=== PATIENT | male | born 1945 | race Caucasian/White ===

== ENCOUNTER 2016-11-12 08:56 | Emergency (ER) | payer MEDICARE, OTHER ==
[~2016-11-12] VITALS: Ht 190.5 cm; Wt 91.0 kg
[~2016-11-12 08:56] MED LIST: ALEV220T14 PO; Baclofen ITR; CELE20TA PO; CORE25TA PO; FEXO60TA PO; FISH1000; LATA0.002 RIGHT EYE; PRIN20TA2 PO; SENN8.6T8; TRIA1CAP6 PO; ZOCO40TA PO
[2016-11-12 09:04] VITALS: BP 149/70; PULSE 66; RESP 23; TEMP 99.1; O2SAT 98
--- NOTE | 2016-11-12 09:15 | PD ---
HPI Chief Complaint: Fall Time Seen by Provider: 09:04 Travel History International Travel<30 days: No Contact w/Intl Traveler<30days: No Traveled to known affect area: No History of Present Illness HPI 70-year-old male complains of forehead pain. Patient states that he felt this morning. Patient denies loss of consciousness. Patient states that he has a lump on the left side of the forehead. Patient denies any visual change. Patient denies any neck pain. Patient denies any chest pain or shortness of breath. Patient denies abdominal pain. Patient denies any focal weakness or numbness of extremity. Patient taking Naprosyn daily or arthritis. 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; ) Psychiatric: Yes (OCCAS BOUTS OF DEPRESSION SINCE STROKE) Respiratory: Yes (HX SLEEP APNEA RESOLVED WITH WEIGHT LOSS ) Radiation Therapy: Yes Thyroid Disease: No Past Surgical History Abdominal Surgery: No AICD: No Body Medical Devices: BACLOFEN PUMP LL ABDOMEN Cardiac Surgery: No Ear Surgery: No Endocrine Surgery: No Eye Surgery: No Genitourinary Surgery: No Joint Replacement: No Oral Surgery: Yes (TONSILLECTOMY ) Pacemaker: No Thoracic Surgery: No Social History Alcohol Use: No Tobacco Use: No Substance Use: No Allergies-Medications (Allergen,Severity, Reaction): Coded Allergies: No Known Allergies (Unverified , 11/01/16) Reported Meds & Prescriptions Reported Meds & Active Scripts Active Reported Aleve Arthritis (Naproxen Sodium) 220 Mg Tab 220 Mg PO BID [Baclofen] 256.1 Mcg ITR CONTINUOUS Zocor (Simvastatin) 40 Mg Tab 0.5 Mg PO HS Prinivil (Lisinopril) 20 Mg Tab 40 Mg PO DAILY Latanoprost Opth Drops (Latanoprost) 0.005% Drops 1 Drop RIGHT EYE HS Refrigerate until opened. Fish Oil ([place]-3 Fatty Acids) 1,000 Mg Cap 1,000 HS Fexofenadine (Fexofenadine HCl) 60 Mg Tab Unknown Dose PO BID Dyrenium (Triamterene) 50 Mg Cap 25 Mg PO DAILY@0600 Coreg (Carvedilol) 25 Mg Tab 25 Mg PO BID Celexa (Citalopram Hydrobromide) 20 Mg Tab 10 Mg PO DAILY Senna S (Sennosides-Docusate Sodium) 8.6-50 Mg Tab 2 Tab DAILY Review of Systems General / Constitutional: No: Fever Eyes: No: Visual changes HENT: Positive: Headaches Cardiovascular: No: Chest Pain or Discomfort Respiratory: No: Shortness of Breath Gastrointestinal: No: Abdominal Pain Genitourinary: No: Dysuria Musculoskeletal: No: Pain Skin: No Rash Neurologic: No: Weakness Psychiatric: No: Depression Endocrine: No: Polydipsia Hematologic/Lymphatic: No: Easy Bruising Physical Exam Narrative GENERAL: Well-nourished, well-developed patient. SKIN: Focused skin assessment warm/dry. HEAD: Normocephalic. Patient has soft tissue swelling tenderness left forehead area. Patient has abrasion to the forehead. No active bleeding. EYES: No scleral icterus. No injection or drainage. Pupils 3 mm equal reactive. NECK: Supple, trachea midline. No JVD or lymphadenopathy. No neck tenderness. CARDIOVASCULAR: Regular rate and rhythm without murmurs, gallops, or rubs. RESPIRATORY: Breath sounds equal bilaterally. No accessory muscle use. GASTROINTESTINAL: Abdomen soft, non-tender, nondistended. MUSCULOSKELETAL: No cyanosis, or edema. BACK: Nontender without obvious deformity. No CVA tenderness. Neurologic exam: Patient's awake alert oriented 3. No obvious focal neurological deficit. Data Data Last Documented VS Vital Signs Date Time Temp Pulse Resp B/P (MAP) Pulse Ox O2 Delivery O2 Flow Rate FiO2 11/12/16 09:05 Room Air 11/12/16 09:04 99.1 66 23 149/70 (96) [address] Brain W/O Iv Contrast(Rout) (11/12/16 09:04) MDM Medical Decision Making Medical Screen Exam Complete: Yes Emergency Medical Condition: Yes Interpretation(s) Last Impressions Head CT 11/12/16 0904 Signed Impressions: Service Date/Time: Saturday, November 12, 2016 09:43 - CONCLUSION: No acute intracranial injury Rich Christianson MD Differential Diagnosis Differential diagnosis including closed head injury, skull fracture, intracranial hemorrhage. Narrative Course 70-year-old male with head injury. Status post fall. Diagnosis Primary Impression: Closed head injury Qualified Codes: S09.90XA - Unspecified injury of head, initial encounter Additional Impressions: Traumatic hematoma of forehead Qualified Codes: S00.83XA - Contusion of other part of head, initial encounter Forehead abrasion Qualified Codes: S00.81XA - Abrasion of other part of head, initial encounter Patient Instructions: General Instructions Additional Instructions: Polysporin ointment daily. Head trauma instructions. Follow-up as needed. Med/Other Pt SpecificInfo: No Change to Meds Disposition: 01 DISCHARGE HOME Condition: Stable Shan Ramos MD Nov 12, 2016 09:15
--- NOTE | 2016-11-12 10:24 | RADRPT ---
EXAM DATE/TIME: 11/12/2016 09:43 [facility] COMPARISON: CT BRAIN W/O CONTRAST, February 09, 2016, 11:33. INDICATIONS : Trauma, fall. Left eye swelling. RADIATION DOSE: 39.77 CTDIvol (mGy) MEDICAL HISTORY : None SURGICAL HISTORY : None. ENCOUNTER: Initial ACUITY: 1 day PAIN SCALE: 4/10 LOCATION: Left cranial TECHNIQUE: Multiple contiguous axial images were obtained of the head. Using automated exposure control and adj ustment of the mA and/or kV according to patient size, radiation dose was kept as low as reasonably a chievable to obtain optimal diagnostic quality images. DICOM format image data is available electro nically for review and comparison. FINDINGS: The brain appearance is stable with mild ex thank you expansion of the left lateral ventricle followi ng old basal ganglia lacunar infarct. Minimal spontaneous density in the left external capsule region is unchanged. There is no evidence of intracranial mass or hemorrhage. There is nothing to suggest a cute infarction. There is prominent left frontal cephalohematoma without evidence of underlying skull fracture. CONCLUSION: No acute intracranial injury Rich Christianson MD on November 12, 2016 at 10:20 Board Certified Radiologist. This report was verified electronically.
[2016-11-12 13:06] VITALS: BP 130/70
== END 2016-11-12 13:11 | disposition home or self-care (01) ==
LOC: NEPE 08:56
DX: S09.90XA Unspecified injury of head, initial encounter (principal); S00.83XA Contusion of other part of head, initial encounter; S00.81XA Abrasion of other part of head, initial encounter; W01.0XXA Fall on same level from slipping, tripping and stumbling without subsequent striking against object, initial encounter; Y93.01 Activity, walking, marching and hiking
CPT/HCPCS: 70450; 99284

== ENCOUNTER 2017-06-07 12:20 | Emergency (ER) | payer MEDICARE, OTHER ==
[~2017-06-07] VITALS: Ht 190.5 cm; Wt 100.0 kg
[~2017-06-07 12:20] MED LIST changes: -ALEV220T14 PO; -LATA0.002 RIGHT EYE; +MULT-65 PO; -TRIA1CAP6 PO; +TRIA37.53 PO
[2017-06-07 12:28] VITALS: BP 116/59; PULSE 61; RESP 18; TEMP 97.5; O2SAT 97
--- NOTE | 2017-06-07 13:25 | PD ---
HPI Chief Complaint: Injury Time Seen by Provider: 12:49 Travel History International Travel<30 days: No Contact w/Intl Traveler<30days: No Traveled to known affect area: No History of Present Illness HPI 71-year-old man, history of stroke with resultant right-sided paresis, presents to the ED evaluation for fall. He reports that he had 2 falls today. He normally is pretty unsteady and weak in the right side. He normally uses a cane to get around in a wheelchair/scooter at his nursing facility. Complains of inability to fully extend the knee since the fall. Some pain there. Denies hitting his head. No other complaints. History Past Medical History Narrative Medical Right-sided paresis status post stroke known history of prostate cancer Occasional depression History of sleep apnea Baclofen pump Social History Alcohol Use: No Tobacco Use: No (QUIT ) Allergies-Medications (Allergen,Severity, Reaction): Coded Allergies: No Known Allergies (Unverified , 11/01/16) Reported Meds & Prescriptions Reported Meds & Active Scripts Active Reported Multi-Vitamin Daily (Multiple Vitamin) 1 Tab Tab 1 Tab PO DAILY Triamterene-Hydrochlorothiazide 37.5-25 Mg Cap 1 Cap PO DAILY [Baclofen] 256.1 Mcg ITR CONTINUOUS Zocor (Simvastatin) 40 Mg Tab 0.5 Mg PO HS Prinivil (Lisinopril) 20 Mg Tab 40 Mg PO DAILY Fish Oil ([place]-3 Fatty Acids) 1,000 Mg Cap 1,000 HS Fexofenadine (Fexofenadine HCl) 60 Mg Tab 180 PO DAILY Coreg (Carvedilol) 25 Mg Tab 25 Mg PO BID Celexa (Citalopram Hydrobromide) 20 Mg Tab 10 Mg PO DAILY Senna S (Sennosides-Docusate Sodium) 8.6-50 Mg Tab 1 Tab BID Review of Systems Except as stated in HPI: all other systems reviewed are Neg Physical Exam Narrative GENERAL: 71-year-old man, contracted in the right extremities, nontoxic. SKIN: Focused skin assessment warm/dry. HEAD: Atraumatic. Normocephalic. EYES: Pupils equal and round. No scleral icterus. No injection or drainage. CARDIOVASCULAR: Regular rate and rhythm. No murmur appreciated. RESPIRATORY: No accessory muscle use. Clear to auscultation. Breath sounds equal bilaterally. GASTROINTESTINAL: Abdomen soft, non-tender, nondistended. Musculoskeletal: Flexion contractures in the right upper extremity. Right lower extremity shows the right knee slightly flexed. He can flex it further without much resistance however extending it fully is difficult. No significant pain. There is no palpable tenderness. No erythema warmth. No obvious joint effusion. NEUROLOGICAL: Awake and alert. No obvious cranial nerve deficits. Motor grossly within normal limits. Normal speech. PSYCHIATRIC: Appropriate mood and affect; insight and judgment normal. Data Data Last Documented VS Vital Signs Date Time Temp Pulse Resp B/P (MAP) Pulse Ox O2 Delivery O2 Flow Rate FiO2 06/07/17 12:28 97.5 61 18 116/59 (78) 97 Orders Orders Knee, Ltd (1 Or 2vws) (06/07/17 ) Splint Or Brace Apply/Monitor (06/07/17 13:20) Acetaminophen (Tylenol) (06/07/17 13:30) Ed Discharge Order (06/07/17 13:20) [facility] Medical Decision Making Medical Screen Exam Complete: Yes Emergency Medical Condition: Yes Interpretation(s) My review of right knee x-ray: No acute fracture. Differential Diagnosis Fracture, effusion, joint instability, other Narrative Course Medical decision making 71-year-old man presents to the emergency department complaining of right knee stiffness. History of hemorrhagic CVA with resultant right-sided stiffness and paresis. Is a baclofen pump. I do not see any fracture on the x-ray. Will wrap it for support. Follow-up if symptoms persist. Diagnosis Primary Impression: Fall Additional Impression: Knee stiffness Additional Instructions: Use Omi wrap as needed for knee support. Weight-bear as tolerated. Follow-up with your primary doctor in 1 week if symptoms persist. Med/Other Pt SpecificInfo: No Change to Meds Disposition: 01 DISCHARGE HOME Condition: Stable Jewel Ludwig MD Jun 07, 2017 13:25
[2017-06-07] MEDS ORDERED: ACETAMINOPHEN 500 MG CPLT PO ONE (13:30)
--- NOTE | 2017-06-07 13:43 | RADRPT ---
EXAM DATE/TIME: 06/07/2017 13:04 [facility] COMPARISON: No previous studies available for comparison. INDICATIONS : Right knee pain, fall. MEDICAL HISTORY : Stroke. SURGICAL HISTORY : None. ENCOUNTER: Initial ACUITY: 1 day PAIN SCORE: 10/10 LOCATION: Right knee FINDINGS: 2 view examination of the knee demonstrates prominent osteophytes about the patella in a low-lying po sition to the patella. The suprapatellar soft tissues are normal in thickness. Possible narrowing o f the lateral compartment of the knee. The tibial plateaus are not well seen on these 2 views. Vasc ular calcification in the distal thigh and popliteal region. CONCLUSION: 1. Prominent patellar osteophytes. 2. No gross abnormality seen. However, there is incomplete evaluation of the tibial plateaus. Soheila hadley onsider performing oblique views for complete evaluation. Nick Haas MD on June 07, 2017 at 13:40 Board Certified Radiologist. This report was verified electronically.
[2017-06-07] MEDS ORDERED: TRAM50TA PO (13:46)
[2017-06-07] MEDS ORDERED: CELE20TA PO (13:46)
[2017-06-07] MEDS ORDERED: SIMV20TA PO (13:46)
== END 2017-06-07 14:35 | disposition home or self-care (01) ==
LOC: NEPD 12:20
DX: M25.669 Stiffness of unspecified knee, not elsewhere classified (principal); M25.561 Pain in right knee; W19.XXXA Unspecified fall, initial encounter; I69.351 Hemiplegia and hemiparesis following cerebral infarction affecting right dominant side; F32.9 Major depressive disorder, single episode, unspecified; G47.30 Sleep apnea, unspecified; Z87.891 Personal history of nicotine dependence; Z85.46 Personal history of malignant neoplasm of prostate
CPT/HCPCS: 73560; 99283

== ENCOUNTER 2017-06-10 18:46 | Observation (INO) | payer MEDICARE, OTHER ==
[~2017-06-10] VITALS: Ht 190.5 cm; Wt 95.0 kg
[~2017-06-10 18:46] MED LIST changes: +SIMV20TA PO; +TRAM50TA PO; -ZOCO40TA PO
[2017-06-10 19:05] VITALS: BP 147/67; PULSE 66; RESP 17; TEMP 98; O2SAT 98
--- NOTE | 2017-06-10 19:34 | PD ---
HPI Chief Complaint: General Weakness Time Seen by Provider: 19:21 Travel History International Travel<30 days: No Contact w/Intl Traveler<30days: No Traveled to known affect area: No History of Present Illness HPI Patient is a 71 year old male sent in from his [facility] due to concerns for his ability to care for himself. Per EMS, he has had a decline in his ability to carry out his ADLs. He has history of stroke in the past with residual right sided weakness. His only complaint is right arm pain, which he says has been present since the stroke. He was here for a fall on June 07, but says he has not fallen since then. Staff at the [facility] was concerned for possible increased swelling of his right arm. He denies chest pain, SOB, headache, nausea or vomiting. Severity is mild. 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; ) Psychiatric: Yes (OCCAS BOUTS OF DEPRESSION SINCE STROKE) Respiratory: Yes (HX SLEEP APNEA RESOLVED WITH WEIGHT LOSS ) Radiation Therapy: Yes Sleep Apnea: Yes Thyroid Disease: No Tetanus Vaccination: < 5 Years Influenza Vaccination: Yes Past Surgical History Abdominal Surgery: No AICD: No Body Medical Devices: BACLOFEN PUMP LL ABDOMEN Cardiac Surgery: No Ear Surgery: No Endocrine Surgery: No Eye Surgery: No Genitourinary Surgery: No Joint Replacement: No Oral Surgery: Yes Pacemaker: No Thoracic Surgery: No Tonsillectomy: Yes Other Surgery: Yes Social History Alcohol Use: No Tobacco Use: No (QUIT ) Substance Use: No Allergies-Medications (Allergen,Severity, Reaction): Coded Allergies: No Known Allergies (Unverified Adverse Reaction, Unknown, 06/10/17) Reported Meds & Prescriptions Reported Meds & Active Scripts Active Reported Tramadol (Tramadol HCl) 50 Mg Tab 50 Mg PO Q6H PRN Simvastatin 20 Mg Tab 20 Mg PO HS Celexa (Citalopram Hydrobromide) 20 Mg Tab 20 Mg PO BID Multi-Vitamin Daily (Multiple Vitamin) 1 Tab Tab 1 Tab PO DAILY Triamterene-Hydrochlorothiazide 37.5-25 Mg Cap 1 Cap PO DAILY [Baclofen] 256.1 Mcg ITR CONTINUOUS Prinivil (Lisinopril) 20 Mg Tab 40 Mg PO DAILY Fish Oil ([place]-3 Fatty Acids) 1,000 Mg Cap 1,000 HS Fexofenadine (Fexofenadine HCl) 60 Mg Tab 180 PO DAILY Coreg (Carvedilol) 25 Mg Tab 25 Mg PO BID Senna S (Sennosides-Docusate Sodium) 8.6-50 Mg Tab 1 Tab BID Review of Systems Except as stated in HPI: all other systems reviewed are Neg General / Constitutional: No: Fever, Chills Eyes: No: Blurred Vision HENT: No: Headaches, Lightheadedness Cardiovascular: No: Chest Pain or Discomfort Respiratory: No: Shortness of Breath Gastrointestinal: No: Nausea, Vomiting Musculoskeletal: Positive: Edema, Pain Skin: No Rash, No Change in Pigmentation Neurologic: No: Weakness, Dizziness Physical Exam Narrative GENERAL: Awake and alert, in no acute distress. SKIN: Focused skin assessment warm/dry. Ecchymosis to the right upper extremity. No wounds or signs of infection. HEAD: Atraumatic. Normocephalic. EYES: Pupils equal and round. No scleral icterus. EOMI. ENT: Mucous membranes pink and moist. NECK: Trachea midline. No JVD. CARDIOVASCULAR: Regular rate and rhythm. No murmur appreciated. RESPIRATORY: No accessory muscle use. Clear to auscultation. Breath sounds equal bilaterally. GASTROINTESTINAL: Abdomen soft, non-tender, nondistended. MUSCULOSKELETAL: No obvious deformities. No clubbing. No cyanosis. NEUROLOGICAL: Awake and alert. No obvious cranial nerve deficits. Decreased movement/strength in the right extremities (chronic). Normal speech. PSYCHIATRIC: Appropriate mood and affect; insight and judgment normal. Data Data Last Documented VS Vital Signs Date Time Temp Pulse Resp B/P (MAP) Pulse Ox O2 Delivery O2 Flow Rate FiO2 06/10/17 19:05 98.0 66 17 147/67 (93) 98 Orders Orders Iv Access Insert/Monitor (06/10/17 19:22) Complete Blood Count With Diff (06/10/17 19:22) Comprehensive Metabolic Panel (06/10/17 19:22) Troponin I (06/10/17 19:22) Creatine Kinase (Cpk) (06/10/17 19:22) Us Arm Venous Doppler (06/10/17 ) Ct Brain W/O Iv Contrast(Rout) (06/10/17 ) Urinalysis - C+S If Indicated (06/10/17 19:22) CKMB (06/10/17 19:34) CKMB% (06/10/17 19:34) Electrocardiogram (06/10/17 19:15) Labs Laboratory Tests Test 06/10/17 19:34 06/10/17 20:44 White Blood Count 5.0 TH/MM3 Red Blood Count 3.33 MIL/MM3 Hemoglobin 10.4 GM/DL Hematocrit 30.2 % Mean Corpuscular Volume 90.7 FL Mean Corpuscular Hemoglobin 31.2 PG Mean Corpuscular Hemoglobin Concent 34.4 % Red Cell Distribution Width 13.2 % Platelet Count 187 TH/MM3 Mean Platelet Volume 8.4 FL Neutrophils (%) (Auto) 65.1 % Lymphocytes (%) (Auto) 18.0 % Monocytes (%) (Auto) 14.0 % Eosinophils (%) (Auto) 2.6 % Basophils (%) (Auto) 0.3 % Neutrophils # (Auto) 3.3 TH/MM3 Lymphocytes # (Auto) 0.9 TH/MM3 Monocytes # (Auto) 0.7 TH/MM3 Eosinophils # (Auto) 0.1 TH/MM3 Basophils # (Auto) 0.0 TH/MM3 CBC Comment DIFF FINAL Differential Comment Blood Urea Nitrogen 27 MG/DL Creatinine 1.05 MG/DL Random Glucose 241 MG/DL Total Protein 6.5 GM/DL Albumin 3.3 GM/DL Calcium Level 8.0 MG/DL Alkaline Phosphatase 71 U/L Aspartate Amino Transf (AST/SGOT) 18 U/L Alanine Aminotransferase (ALT/SGPT) 19 U/L Total Bilirubin 0.5 MG/DL Sodium Level 134 MEQ/L Potassium Level 4.3 MEQ/L Chloride Level 101 MEQ/L Carbon Dioxide Level 27.5 MEQ/L Anion Gap 6 MEQ/L Estimat Glomerular Filtration Rate 70 ML/MIN Total Creatine Kinase 363 U/L Creatine Kinase MB 2.7 NG/ML Creatine Kinase MB % 0.7 % Troponin I LESS THAN 0.02 NG/ML Urine Color YELLOW Urine Turbidity CLEAR Urine pH 6.0 Urine Specific [place] 1.022 Urine Protein TRACE mg/dL Urine Glucose (UA) NEG mg/dL Urine Ketones NEG mg/dL Urine Occult Blood NEG Urine Nitrite NEG Urine Bilirubin NEG Urine Urobilinogen LESS THAN 2.0 MG/DL Urine Leukocyte Esterase NEG Urine RBC 1 /hpf Urine WBC 1 /hpf Urine Squamous Epithelial Cells <1 /hpf Microscopic Urinalysis Comment CULT NOT INDICATED MDM Medical Decision Making Medical Screen Exam Complete: Yes Emergency Medical Condition: Yes Medical Record Reviewed: Yes Interpretation(s) ECG shows NSR, RBBB Differential Diagnosis dehydration vs electrolyte abnormalities vs DVT vs infection Narrative Course Patient is a 71 year old male who comes in due to concerns he is unable to care for himself at the [facility] and needs higher level of care. Patient complains of chronic pain to his right arm. He is unable to walk or hold himself up currently. IV established, labs sent. Labs show mild dehydration with a BUN of 27 and a Cr 1.05. CT head shows no acute abnormalities. Last 24 hours Impressions Upper Extremity Ultrasound 06/10/17 0000 Signed Impressions: Service Date/Time: Saturday, June 10, 2017 20:03 - CONCLUSION: Normal examination. Zhang Cueva MD Head CT 06/10/17 0000 Signed Impressions: Service Date/Time: Saturday, June 10, 2017 19:49 - CONCLUSION: 1. No acute findings. Remote infarct left external capsule with encephalomalacia. Zhang Cueva MD Patient is unable to walk, so he will be admitted for further management. Diagnosis Primary Impression: Dehydration Additional Impression: Unable to walk Regi Manuel MD Jun 10, 2017 19:34
[2017-06-10 19:42] LABS: AUTOMATED NEUTROPHIL # 3.3 TH/MM3 (1.8-7.7); BASOPHIL % 0.3 % (0.0-2.0); EOSINOPHIL # 0.1 TH/MM3 (0-0.4); EOSINOPHIL % 2.6 % (0.0-4.0); HEMATOCRIT 30.2 % (39.0-51.0); HEMOGLOBIN 10.4 GM/DL (13.0-17.0); LYMPHOCYTE # 0.9 TH/MM3 (1.0-4.8); MEAN CELL VOLUME 90.7 FL (80.0-100.0); MEAN CORPUSCULAR HEMOGLOBIN 31.2 PG (27.0-34.0); MEAN CORPUSCULAR HGB CONC 34.4 % (32.0-36.0); MEAN PLATELET VOLUME 8.4 FL (7.0-11.0); MONOCYTE # 0.7 TH/MM3 (0-0.9); NEUT % 65.1 % (16.0-70.0); PLATELET COUNT 187 TH/MM3 (150-450); RED BLOOD COUNT 3.33 MIL/MM3 (4.50-5.90); RED CELL DISTRIBUTION WIDTH 13.2 % (11.6-17.2)
[2017-06-10 20:07] LABS: ALBUMIN 3.3 GM/DL (3.4-5.0); AST (GOT) 18 U/L (15-37); BICARBONATE 27.5 MEQ/L (21.0-32.0); BLOOD UREA NITROGEN 27 MG/DL (7-18); CHLORIDE 101 MEQ/L (98-107); CREATININE 1.05 MG/DL (0.60-1.30); GLOMERULAR FILTRATION RATE 70 ML/MIN (>89); GLUCOSE,RANDOM 241 MG/DL (74-106); SODIUM (NA) 134 MEQ/L (136-145)
[2017-06-10 20:08] LABS: ALT (GPT) 19 U/L (12-78)
[2017-06-10 20:11] LABS: ALKALINE PHOSPHATASE 71 U/L (45-117); TOTAL BILIRUBIN ADULT 0.5 MG/DL (0.2-1.0); TOTAL PROTEIN 6.5 GM/DL (6.4-8.2); TROPONIN I LESS THAN 0.02 NG/ML (0.02-0.05)
--- NOTE | 2017-06-10 20:17 | RADRPT ---
EXAM DATE/TIME: 06/10/2017 19:49 [facility] COMPARISON: MRI BRAIN W/O CONTRAST, February 09, 2016, 13:50. INDICATIONS : Altered mental status. RADIATION DOSE: 56.35 CTDIvol (mGy) MEDICAL HISTORY : Cerebrovascular disease. Hypertension. Carcinoma, prostate. SURGICAL HISTORY : None. ENCOUNTER: Initial ACUITY: 1 day PAIN SCALE: 0/10 LOCATION: cranial TECHNIQUE: Multiple contiguous axial images were obtained of the head. Using automated exposure control and adj ustment of the mA and/or kV according to patient size, radiation dose was kept as low as reasonably a chievable to obtain optimal diagnostic quality images. DICOM format image data is available electro nically for review and comparison. FINDINGS: There is an old infarct of the left external capsule region with some encephalomalacia and dilatation of the left lateral ventricle. Chronic white matter ischemic changes also are present. No acute intr acranial hemorrhage, mass effect or shift. No hydrocephalus. No acute bony abnormality. CONCLUSION: 1. No acute findings. Remote infarct left external capsule with encephalomalacia. Zhang Cueva MD on June 10, 2017 at 20:13 Board Certified Radiologist. This report was verified electronically.
--- NOTE | 2017-06-10 20:43 | RADRPT ---
EXAM DATE/TIME: 06/10/2017 20:03 [facility] COMPARISON: No previous studies available for comparison. INDICATIONS : RUE swelling. MEDICAL HISTORY : Carcinoma, prostate. Stroke. Hypertension. High cholesterol. SURGICAL HISTORY : Baclofen pump - left lower abdomen. ENCOUNTER: Initial ACUITY: >1 year PAIN SCORE: 0/10 LOCATION: Right arm. FINDINGS: There is spontaneous flow documented in the brachial, basilic, cephalic, axillary, and subclavian vei ns. The vessels are compressible and augmentation response is documented. No filling defects are se en. The flow is phasic with respiration. Direction of flow in the jugular vein is caudal. CONCLUSION: Normal examination. Zhang Cueva MD on June 10, 2017 at 20:40 Board Certified Radiologist. This report was verified electronically.
[2017-06-10 21:44] LABS: BILIRUBIN, URINE NEG (NEG); BLOOD, URINE NEG (NEG); GLUCOSE,URINE NEG (NEG); KETONE, URINE NEG (NEG); NITRITE,URINE NEG (NEG); SQUAMOUS EPITHELIAL CELL URINE <1 /hpf (0-5); URINE COLOR YELLOW (YELLW/STRAW); URINE LEUKOCYTE ESTERASE NEG (NEG)
[2017-06-10 22:00] VITALS: BP 123/60; PULSE 58; RESP 14; O2SAT 98
[2017-06-10 23:00] VITALS: BP 139/72; PULSE 58; RESP 13; O2SAT 97
--- NOTE | 2017-06-10 23:52 | HHI.HP ---
HPI Service [facility] Primary Care Physician Velasquez Yin MD Admission Diagnosis dehydration, inability to walk Diagnoses: Chief Complaint: Inability to walk, weakness Travel History International Travel<30 Days: No Contact w/Intl Traveler <30 Da: No Traveled to Known Affected Are: No History of Present Illness 71-year-old male with history of hypertension, CVA, prostate cancer presented to the ED with concerns of not being able to care for himself and his current [facility]. Patient states over the last few weeks he has been falling more often and has been feeling very weak which causes him to have inability to walk with his cane. He does have a history of a stroke in the past with residual right-sided weakness but he states this is unchanged. Per the ER report staff at the [facility] has been concerned for the patient because he is unable to care for himself in the current setting with everyday ADLs. He denies any current chest pain, shortness of breath, fever or chills. Review of Systems Except as stated in HPI: all other systems reviewed are Neg Past Family Social History Past Medical History Prostate cancer status post radiation Hypertension Hyperlipidemia CVA with right upper arm residuals Hard of hearing Diabetes Past Surgical History Tonsillectomy Reported Medications Reported Meds & Active Scripts Active Reported Tramadol (Tramadol HCl) 50 Mg Tab 50 Mg PO Q6H PRN Simvastatin 20 Mg Tab 20 Mg PO HS Celexa (Citalopram Hydrobromide) 20 Mg Tab 20 Mg PO BID Multi-Vitamin Daily (Multiple Vitamin) 1 Tab Tab 1 Tab PO DAILY Triamterene-Hydrochlorothiazide 37.5-25 Mg Cap 1 Cap PO DAILY [Baclofen] 256.1 Mcg ITR CONTINUOUS Prinivil (Lisinopril) 20 Mg Tab 40 Mg PO DAILY Fish Oil ([place]-3 Fatty Acids) 1,000 Mg Cap 1,000 HS Fexofenadine (Fexofenadine HCl) 60 Mg Tab 180 PO DAILY Coreg (Carvedilol) 25 Mg Tab 25 Mg PO BID Senna S (Sennosides-Docusate Sodium) 8.6-50 Mg Tab 1 Tab BID Allergies: Coded Allergies: No Known Allergies (Unverified Adverse Reaction, Unknown, 06/10/17) Active Ordered Medications Current Medications Medications (Trade) Dose Ordered Sig/Luz Route Start Time Stop Time Status Last Admin Sodium Chloride 1,000 ml @ 100 mls/hr Q10H IV 06/10/17 23:52 06/11/17 00:48 (NS Flush) 2 ml UNSCH PRN IV FLUSH 06/11/17 00:00 (NS Flush) 2 ml BID IV FLUSH 06/11/17 09:00 (Tylenol) 650 mg Q4H PRN PO 06/11/17 00:00 (Zofran Inj) 4 mg Q6H PRN IVP 06/11/17 00:00 (Narcan Inj) 0.4 mg UNSCH PRN IV PUSH 06/11/17 00:00 (Jhoana-Colace) 1 tab BID PO 06/11/17 09:00 (Milk Of Magnesia Liq) 30 ml Q12H PRN PO 06/11/17 00:00 (Senokot) 17.2 mg Q12H PRN PO 06/11/17 00:00 (Dulcolax Supp) 10 mg DAILY PRN RECTAL 06/11/17 00:00 (Lactulose Liq) 30 ml DAILY PRN PO 06/11/17 00:00 Family History Patient denies any family history no heart disease or cancer Social History Patient denies any tobacco, alcohol or illicit drug use. Physical Exam Vital Signs Vital Signs Date Time Temp Pulse Resp B/P (MAP) Pulse Ox O2 Delivery O2 Flow Rate FiO2 06/10/17 22:00 58 14 123/60 (81) 98 Room Air 06/10/17 19:17 Room Air 06/10/17 19:05 98.0 66 17 147/67 (93) 98 Physical Exam GENERAL: This is a well-nourished, well-developed patient, in no apparent distress. SKIN: multiple ecchymosis bilateral arms HEAD: Atraumatic. Normocephalic. EYES: Pupils equal round and reactive. ENT: Nose without bleeding, purulent drainage or septal hematoma. Airway patent. NECK: Trachea midline. No JVD or lymphadenopathy CARDIOVASCULAR: Regular rate and rhythm without murmurs, gallops, or rubs. RESPIRATORY: Clear to auscultation. Breath sounds equal bilaterally. No wheezes , rales, or rhonchi. GASTROINTESTINAL: Abdomen soft, non-tender, nondistended. No guarding. MUSCULOSKELETAL: Extremities without clubbing, cyanosis, or edema. No joint tenderness, effusion, or edema noted. No calf tenderness. NEUROLOGICAL: Awake and alert. Right upper extremity with minimal movement due to CVA. Bilateral lower extremities weak right greater than left .Normal speech. Laboratory Laboratory Tests Test 06/10/17 19:34 06/10/17 20:44 White Blood Count 5.0 Red Blood Count 3.33 Hemoglobin 10.4 Hematocrit 30.2 Mean Corpuscular Volume 90.7 Mean Corpuscular Hemoglobin 31.2 Mean Corpuscular Hemoglobin Concent 34.4 Red Cell Distribution Width 13.2 Platelet Count 187 Mean Platelet Volume 8.4 Neutrophils (%) (Auto) 65.1 Lymphocytes (%) (Auto) 18.0 Monocytes (%) (Auto) 14.0 Eosinophils (%) (Auto) 2.6 Basophils (%) (Auto) 0.3 Neutrophils # (Auto) 3.3 Lymphocytes # (Auto) 0.9 Monocytes # (Auto) 0.7 Eosinophils # (Auto) 0.1 Basophils # (Auto) 0.0 CBC Comment DIFF FINAL Differential Comment Blood Urea Nitrogen 27 Creatinine 1.05 Random Glucose 241 Total Protein 6.5 Albumin 3.3 Calcium Level 8.0 Alkaline Phosphatase 71 Aspartate Amino Transf (AST/SGOT) 18 Alanine Aminotransferase (ALT/SGPT) 19 Total Bilirubin 0.5 Sodium Level 134 Potassium Level 4.3 Chloride Level 101 Carbon Dioxide Level 27.5 Anion Gap 6 Estimat Glomerular Filtration Rate 70 Total Creatine Kinase 363 Creatine Kinase MB 2.7 Creatine Kinase MB % 0.7 Troponin I LESS THAN 0.02 Urine Color YELLOW Urine Turbidity CLEAR Urine pH 6.0 Urine Specific [place] 1.022 Urine Protein TRACE Urine Glucose (UA) NEG Urine Ketones NEG Urine Occult Blood NEG Urine Nitrite NEG Urine Bilirubin NEG Urine Urobilinogen LESS THAN 2.0 Urine Leukocyte Esterase NEG Urine RBC 1 Urine WBC 1 Urine Squamous Epithelial Cells <1 Microscopic Urinalysis Comment CULT NOT INDICATED Result Diagram: 06/10/17193306/10/17 193 Imaging Last Impressions Upper Extremity Ultrasound 06/10/17 0000 Signed Impressions: Service Date/Time: Saturday, June 10, 2017 20:03 - CONCLUSION: Normal examination. Zhang Cueva MD Head CT 06/10/17 0000 Signed Impressions: Service Date/Time: Saturday, June 10, 2017 19:49 - CONCLUSION: 1. No acute findings. Remote infarct left external capsule with encephalomalacia. MD uQynh Suarez VTE Risk Assessment Quynh VTE Risk Assessment: Mod/High Risk (score >= 2) Caprini Risk Assessment Model Point Value = 1 Point Value = 2 Point Value = 3 Point Value = 5 Age 41-60 Minor surgery BMI > 25 kg/m2 Swollen legs Varicose veins or History of unexplained or recurrent spontaneous Oral contraceptives or hormone replacement Sepsis (< 1 month) Serious lung disease, including pneumonia (< 1 month) Abnormal pulmonary function Acute myocardial infarction Congestive heart failure (< 1 month) History of inflammatory bowel disease Medical patient at bed rest Age 61-74 Arthroscopic surgery Major open surgery (> 45 min) Laparoscopic surgery (> 45 min) Malignancy Confined to bed (> 72 hours) Immobilizing plaster cast Central venous access Age >= 75 History of VTE Family history of VTE Factor V Leiden Prothrombin [id number] Lupus anticoagulant Anticardiolipin antibodies Elevated serum homocysteine Heparin-induced thrombocytopenia Other congenital or acquired thrombophilia Stroke (< 1 month) Elective arthroplasty Hip, pelvis, or leg fracture Acute spinal cord injury (< 1 month) Prophylaxis Regimen Total Risk Factor Score Risk Level Prophylaxis Regimen 0-1 Low Early ambulation 2 Moderate Order ONE of the following: *Sequential Compression Device (SCD) *Heparin 5000 units SQ BID 3-4 Higher Order ONE of the following medications: *Heparin 5000 units SQ TID *Enoxaparin/Lovenox 40 mg SQ daily (WT < 150 kg, CrCl > 30 mL/min) *Enoxaparin/Lovenox 30 mg SQ daily (WT < 150 kg, CrCl > 10-29 mL/min) *Enoxaparin/Lovenox 30 mg SQ BID (WT < 150 kg, CrCl > 30 mL/min) AND/OR *Sequential Compression Device (SCD) 5 or more Highest Order ONE of the following medications: *Heparin 5000 units SQ TID (Preferred with Epidurals) *Enoxaparin/Lovenox 40 mg SQ daily (WT < 150 kg, CrCl > 30 mL/min) *Enoxaparin/Lovenox 30 mg SQ daily (WT < 150 kg, CrCl > 10-29 mL/min) *Enoxaparin/Lovenox 30 mg SQ BID (WT < 150 kg, CrCl > 30 mL/min) AND *Sequential Compression Device (SCD) Assessment and Plan Problem List: (1) Hypertension ICD Code: I10 - Hypertension Status: Acute (2) Dehydration ICD Code: E86.0 - Dehydration Status: Acute (3) Impaired gait ICD Code: R26.9 - Impaired gait Status: Acute Assessment and Plan 71-year-old male with history of hypertension, CVA, prostate cancer presented to the ED with concerns of not being able to care for himself and his current [facility]. Physical deconditioning status post falls -PT eval and treat -Case management consult for SNF placement Mild rhabdomyolysis CPK 363 -IVF -CPK in AM Hyperglycemia, patient denies any history, glucose 241 -Accu-Cheks with sliding scale -A1C ordered Hypertension, chronic -Resume home medications, lisinopril, and monitor vitals Hyperlipidemia, chronic -Resume home medications simvastatin DVT prophylaxis: SCDs, heparin Discussed Condition With Patient and ED physician Isabel Razo Jun 10, 2017 23:52
[2017-06-11] VITALS (7 sets, daily range): BP systolic 152–194; BP diastolic 62–81; PULSE 60–72; RESP 14–20; TEMP 96.2–98.5; O2SAT 95–98
[2017-06-11] MEDS ORDERED: MAGNESIUM HYDROXIDE SUSP 30 ML CUP PO PRN
[2017-06-11] MEDS ORDERED: BISACODYL 10 MG SUPP RECTAL PRN
[2017-06-11] MEDS ORDERED: ONDANSETRON HCL 4 MG/2 ML VIAL IVP PRN
[2017-06-11] MEDS ORDERED: LACTULOSE SYRUP 20 GM/30 ML CUP PO PRN
[2017-06-11] MEDS ORDERED: SENNOSIDES 8.6 MG TAB PO PRN
[2017-06-11] MEDS ORDERED: SODIUM CHLORIDE 0.9% FLUSH 10 ML FLUSH IV FLUSH PRN
[2017-06-11] MEDS ORDERED: ACETAMINOPHEN 325 MG TAB PO PRN
[2017-06-11] MEDS ORDERED: NALOXONE HCL 0.4 MG/ML AMP IV PUSH PRN
[2017-06-11] MEDS: SODIUM CHLOR 0.9% 1000 ML INJ 1,000 ML IV SCH ×3 (00:48→22:55)
[2017-06-11] MEDS ORDERED: DEXTROSE 50% IN WATER 50 ML VIAL(D50) IV PUSH PRN (02:15)
[2017-06-11] MEDS ORDERED: GLUCAGON 1 MG/ML VIAL OTHER PRN (02:15)
--- NOTE | 2017-06-11 04:49 | EKG ---
Date Performed: 06/10/2017 Time Performed: 19:15:38 PTAGE: 71 years EKG: Sinus rhythm RIGHT BUNDLE BRANCH BLOCK ABNORMAL ECG No significant change from prior electrocardiogram. PREVIOUS TRACING : 03/11/2014 15.06 DOCTOR: Fernando Guy Interpretating Date/Time 06/11/2017 04:48:32
[2017-06-11] MEDS: HEPARIN SODIUM - SQ 10,000 UNITS/ML VIAL SQ SCH ×3 (06:00→22:55)
[2017-06-11] MEDS: INSULIN ASPART SUPPLEMENTAL SCALE SQ SCH ×4 (08:00→21:00)
[2017-06-11] MEDS: SODIUM CHLORIDE 0.9% FLUSH 10 ML FLUSH IV FLUSH SCH ×2 (09:00→21:00)
[2017-06-11] MEDS: CITALOPRAM HYDROBROMIDE 20 MG TAB PO SCH ×2 (09:00→22:56)
[2017-06-11] MEDS ORDERED: DOCUSATE SODIUM 50 MG/SENNA 8.6 MG TAB PO SCH (09:00)
[2017-06-11 09:13] LABS: AUTOMATED NEUTROPHIL # 3.8 TH/MM3 (1.8-7.7); BASOPHIL % 0.3 % (0.0-2.0); EOSINOPHIL # 0.1 TH/MM3 (0-0.4); EOSINOPHIL % 2.2 % (0.0-4.0); HEMATOCRIT 31.4 % (39.0-51.0); HEMOGLOBIN 10.9 GM/DL (13.0-17.0); LYMPH % 10.5 % (9.0-44.0); LYMPHOCYTE # 0.5 TH/MM3 (1.0-4.8); MEAN CELL VOLUME 90.1 FL (80.0-100.0); MEAN CORPUSCULAR HEMOGLOBIN 31.2 PG (27.0-34.0); MEAN CORPUSCULAR HGB CONC 34.6 % (32.0-36.0); MEAN PLATELET VOLUME 7.8 FL (7.0-11.0); MONO % 10.9 % (0.0-8.0); MONOCYTE # 0.5 TH/MM3 (0-0.9); NEUT % 76.1 % (16.0-70.0); PLATELET COUNT 196 TH/MM3 (150-450); RED BLOOD COUNT 3.49 MIL/MM3 (4.50-5.90); RED CELL DISTRIBUTION WIDTH 13.2 % (11.6-17.2)
[2017-06-11 09:28] LABS: BICARBONATE 27.1 MEQ/L (21.0-32.0); CALCIUM 8.1 MG/DL (8.5-10.1); CREATININE 0.66 MG/DL (0.60-1.30)
--- NOTE | 2017-06-11 12:05 | PD.PN.STU ---
Subjective Remarks Patient notes no change in his status. He has been urinating but has not had a bowel movement since yesterday. Requesting his home medications be started. Denies chest pain, nausea/vomiting, headache, or pain. Objective Vitals Vital Signs Date Time Temp Pulse Resp B/P (MAP) Pulse Ox O2 Delivery O2 Flow Rate FiO2 06/11/17 08:00 97.8 66 20 178/80 (112) 95 06/11/17 03:33 96.2 64 16 174/80 (111) 98 Room Air 06/11/17 01:00 60 14 152/68 (96) 97 Room Air 06/10/17 23:00 58 13 139/72 (94) 97 Room Air 06/10/17 22:00 58 14 123/60 (81) 98 Room Air 06/10/17 19:17 Room Air 06/10/17 19:05 98.0 66 17 147/67 (93) 98 I/O 06/10/17 06/10/17 06/10/17 06/11/17 06/11/17 06/11/17 07:00 15:00 23:00 07:00 15:00 23:00 Output Total 200 ml Balance -200 ml Output Urine Total 200 ml # Voids 1 Result Diagram: 06/11/17 0851 06/11/17 0851 Imaging Last Impressions Upper Extremity Ultrasound 06/10/17 0000 Signed Impressions: Service Date/Time: Saturday, June 10, 2017 20:03 - CONCLUSION: Normal examination. Zhang Cueva MD Head CT 06/10/17 0000 Signed Impressions: Service Date/Time: Saturday, June 10, 2017 19:49 - CONCLUSION: 1. No acute findings. Remote infarct left external capsule with encephalomalacia. Zhang Cueva MD Objective Remarks GENERAL: This is a well-nourished, well-developed patient, in no apparent distress. SKIN: multiple ecchymosis bilateral arms with different stages of healing present. HEAD: Atraumatic. Normocephalic. EYES: Pupils equal round and reactive. ENT: Nose without bleeding, purulent drainage or septal hematoma. Airway patent. NECK: Trachea midline. No JVD or lymphadenopathy CARDIOVASCULAR: Regular rate and rhythm without murmurs, gallops, or rubs. RESPIRATORY: Clear to auscultation. Breath sounds equal bilaterally. No wheezes , rales, or rhonchi. GASTROINTESTINAL: Abdomen soft, non-tender, nondistended. No guarding. MUSCULOSKELETAL: Extremities without clubbing, cyanosis, or edema. No joint tenderness, effusion, or edema noted. No calf tenderness. NEUROLOGICAL: Awake and alert. Right upper extremity with minimal movement due to CVA. 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 Bilateral lower extremities weak right greater than left .Normal speech. A/P Assessment and Plan 71-year-old male with history of hypertension, CVA, prostate cancer presented to the ED with concerns of not being able to care for himself and his current [facility]. 1. Weakness/Physical deconditioning status post falls Pt evaluation completed. CT shows no new lesions or recent infarcts.Case management consulted for SNF placement 2. Mild rhabdomyolysis CPK 363 on admission, 320 this AM. Trending down. Continue with IVF and monitor 3. Hyperglycemia, patient denies any history, glucose 241 4/10 142 on sliding scale. 4. Hypertension, chronic 4/10 home meds restarted, continue to monitor. 5. Hyperlipidemia, chronic 4/10 home meds restarted, continue to monitor DVT prophylaxis: SCDs, heparin Discussed Condition With Patient and ED physician Isabel Baum M3 Jun 11, 2017 12:05
[2017-06-11] MEDS: MULTIVITAMIN TAB PO SCH (12:56)
[2017-06-11] MEDS: LISINOPRIL 20 MG TAB PO SCH (12:56)
[2017-06-11] MEDS: DOCUSATE SODIUM 50 MG/SENNA 8.6 MG TAB PO SCH ×2 (12:56→22:55)
[2017-06-11] MEDS: CARVEDILOL 12.5 MG TAB PO SCH ×2 (12:56→22:55)
[2017-06-11] MEDS: TRIAMTERENE/HCTZ 37.5 MG/25 MG CAP PO SCH (15:09)
--- NOTE | 2017-06-11 16:58 | HHI.PR ---
Subjective Remarks Patient denies cp/sob Feels weak Afebrile Objective Vitals Vital Signs Date Time Temp Pulse Resp B/P (MAP) Pulse Ox O2 Delivery O2 Flow Rate FiO2 06/11/17 15:59 98.5 67 18 170/78 (108) 97 06/11/17 13:00 98.0 72 20 166/62 (96) 96 06/11/17 08:00 97.8 66 20 178/80 (112) 95 06/11/17 03:33 96.2 64 16 174/80 (111) 98 Room Air 06/11/17 01:00 60 14 152/68 (96) 97 Room Air 06/10/17 23:00 58 13 139/72 (94) 97 Room Air 06/10/17 22:00 58 14 123/60 (81) 98 Room Air 06/10/17 19:17 Room Air 06/10/17 19:05 98.0 66 17 147/67 (93) 98 I/O 06/10/17 06/10/17 06/10/17 06/11/17 06/11/17 06/11/17 07:00 15:00 23:00 07:00 15:00 23:00 Output Total 200 ml 680 ml Balance -200 ml -680 ml Output Urine Total 200 ml 680 ml # Voids 1 2 # Bowel Movements 1 Result Diagram: 06/11/17 0851 06/11/17 0851 Imaging Last Impressions Upper Extremity Ultrasound 06/10/17 0000 Signed Impressions: Service Date/Time: Saturday, June 10, 2017 20:03 - CONCLUSION: Normal examination. Zhang Cueva MD Head CT 06/10/17 0000 Signed Impressions: Service Date/Time: Saturday, June 10, 2017 19:49 - CONCLUSION: 1. No acute findings. Remote infarct left external capsule with encephalomalacia. Zhang Cueva MD Objective Remarks GENERAL: This is a well-nourished, well-developed patient, in no apparent distress. SKIN: multiple ecchymosis bilateral arms HEAD: Atraumatic. Normocephalic. EYES: Pupils equal round and reactive. ENT: Nose without bleeding, purulent drainage or septal hematoma. Airway patent. NECK: Trachea midline. No JVD or lymphadenopathy CARDIOVASCULAR: Regular rate and rhythm without murmurs, gallops, or rubs. RESPIRATORY: Clear to auscultation. Breath sounds equal bilaterally. No wheezes , rales, or rhonchi. GASTROINTESTINAL: Abdomen soft, non-tender, nondistended. No guarding. MUSCULOSKELETAL: Extremities without clubbing, cyanosis, or edema. No joint tenderness, effusion, or edema noted. No calf tenderness. NEUROLOGICAL: Awake and alert. Right upper extremity with minimal movement due to CVA. Bilateral lower extremities weak right greater than left .Normal speech A/P Problem List: (1) Hypertension ICD Code: I10 - Hypertension Status: Acute (2) Dehydration ICD Code: E86.0 - Dehydration Status: Acute (3) Impaired gait ICD Code: R26.9 - Impaired gait Status: Acute Assessment and Plan 71-year-old male with history of hypertension, CVA, prostate cancer presented to the ED with concerns of not being able to care for himself and his current [facility]. Physical deconditioning status post falls -PT eval and treat -Case management consult for SNF placement Mild rhabdomyolysis CPK 363 -IVF -CPK trending down - Continue to follow CPK Hyperglycemia -Patient denies history of DM -Accu-Cheks with sliding scale -A1C ordered and pending. - Blood sugars more stable. Hypertension, chronic -Continue lisinopril, and monitor vitals - BP elevated - Add clonidine as needed. Continue to monitor vital signs. Hyperlipidemia, chronic -Continue simvastatin DVT prophylaxis: SCDs, heparin Jagjit Gonzalez MD Jun 11, 2017 16:58
[2017-06-11 17:23] LABS: HEMOGLOBIN A1C 6.6 % (4.3-6.0)
[2017-06-11] MEDS: PRAVASTATIN SOD 40 MG TAB PO SCH (22:56)
[2017-06-12] VITALS (8 sets, daily range): BP systolic 135–186; BP diastolic 57–92; PULSE 61–89; RESP 14–18; TEMP 97.8–98.7; O2SAT 96–98
[2017-06-12] MEDS: HEPARIN SODIUM - SQ 10,000 UNITS/ML VIAL SQ SCH ×3 (06:49→21:00)
[2017-06-12] MEDS: SODIUM CHLOR 0.9% 1000 ML INJ 1,000 ML IV SCH ×2 (07:23→16:01)
[2017-06-12] MEDS: INSULIN ASPART SUPPLEMENTAL SCALE SQ SCH ×4 (08:00→21:01)
[2017-06-12] MEDS: SODIUM CHLORIDE 0.9% FLUSH 10 ML FLUSH IV FLUSH SCH ×2 (08:29→21:00)
[2017-06-12] MEDS: CARVEDILOL 12.5 MG TAB PO SCH ×2 (09:33→21:00)
[2017-06-12] MEDS: CITALOPRAM HYDROBROMIDE 20 MG TAB PO SCH ×2 (09:33→21:00)
[2017-06-12] MEDS: MULTIVITAMIN TAB PO SCH (09:34)
[2017-06-12] MEDS: TRIAMTERENE/HCTZ 37.5 MG/25 MG CAP PO SCH (09:34)
[2017-06-12] MEDS: LISINOPRIL 20 MG TAB PO SCH (09:34)
[2017-06-12] MEDS: DOCUSATE SODIUM 50 MG/SENNA 8.6 MG TAB PO SCH ×2 (09:34→20:59)
[2017-06-12] MEDS ORDERED: cloNIDine HCL 0.1 MG TAB PO PRN (11:15)
--- NOTE | 2017-06-12 12:39 | HHI.PR ---
Subjective Remarks Severely elevated blood pressure. Denies chest pain or shortness of breath. c/o of spasm and pain in right upper extremity. Afebrile Objective Vitals Vital Signs Date Time Temp Pulse Resp B/P (MAP) Pulse Ox O2 Delivery O2 Flow Rate FiO2 06/12/17 11:12 98.2 62 18 146/67 (93) 97 06/12/17 09:07 97.8 61 18 186/89 (121) 97 06/12/17 05:14 98.7 66 14 183/77 (112) 96 06/12/17 01:13 98.0 76 16 177/92 (120) 96 06/11/17 20:46 98.1 72 16 175/81 (112) 98 06/11/17 17:36 63 164/74 (104) 96 06/11/17 15:59 98.5 67 18 170/78 (108) 97 06/11/17 13:00 98.0 72 20 166/62 (96) 96 I/O 06/11/17 06/11/17 06/11/17 06/12/17 06/12/17 06/12/17 07:00 15:00 23:00 07:00 15:00 23:00 Output Total 680 ml Balance -680 ml Output Urine Total 680 ml # Voids 5 # Bowel Movements 1 Result Diagram: 06/11/17 0851 06/11/17 0851 Imaging Last Impressions Upper Extremity Ultrasound 06/10/17 0000 Signed Impressions: Service Date/Time: Saturday, June 10, 2017 20:03 - CONCLUSION: Normal examination. Zhang Cueva MD Head CT 06/10/17 0000 Signed Impressions: Service Date/Time: Saturday, June 10, 2017 19:49 - CONCLUSION: 1. No acute findings. Remote infarct left external capsule with encephalomalacia. Zhang Cueva MD Objective Remarks GENERAL: This is a well-nourished, well-developed patient, in no apparent distress. SKIN: multiple ecchymosis bilateral arms HEAD: Atraumatic. Normocephalic. EYES: Pupils equal round and reactive. ENT: Nose without bleeding, purulent drainage or septal hematoma. Airway patent. NECK: Trachea midline. No JVD or lymphadenopathy CARDIOVASCULAR: Regular rate and rhythm without murmurs, gallops, or rubs. RESPIRATORY: Clear to auscultation. Breath sounds equal bilaterally. No wheezes , rales, or rhonchi. GASTROINTESTINAL: Abdomen soft, non-tender, nondistended. No guarding. MUSCULOSKELETAL: Extremities without clubbing, cyanosis, or edema. No joint tenderness, effusion, or edema noted. No calf tenderness. NEUROLOGICAL: Awake and alert. Right upper extremity with minimal movement due to CVA. Bilateral lower extremities weak right greater than left .Normal speech Medications and IVs Current Medications Medications (Trade) Dose Ordered Sig/Luz Route Start Time Stop Time Status Last Admin Sodium Chloride 1,000 ml @ 100 mls/hr Q10H IV 06/10/17 23:52 06/12/17 07:23 (NS Flush) 2 ml UNSCH PRN IV FLUSH 06/11/17 00:00 (NS Flush) 2 ml BID IV FLUSH 06/11/17 09:00 (Tylenol) 650 mg Q4H PRN PO 06/11/17 00:00 (Zofran Inj) 4 mg Q6H PRN IVP 06/11/17 00:00 (Narcan Inj) 0.4 mg UNSCH PRN IV PUSH 06/11/17 00:00 (Jhoana-Colace) 1 tab BID PO 06/11/17 09:00 06/12/17 09:34 (Milk Of Magnesia Liq) 30 ml Q12H PRN PO 06/11/17 00:00 (Senokot) 17.2 mg Q12H PRN PO 06/11/17 00:00 (Dulcolax Supp) 10 mg DAILY PRN RECTAL 06/11/17 00:00 (Lactulose Liq) 30 ml DAILY PRN PO 06/11/17 00:00 (Coreg) 25 mg BID PO 06/11/17 09:00 06/12/17 09:33 (CeleXA) 20 mg BID PO 06/11/17 09:00 06/12/17 09:33 (Prinivil) 40 mg DAILY PO 06/11/17 09:00 06/12/17 09:34 (Dyazide 37.5-25 Mg) 1 cap DAILY PO 06/11/17 09:00 06/12/17 09:34 (Theragran) 1 tab DAILY PO 06/11/17 09:00 06/12/17 09:34 (Pravachol) 40 mg HS PO 4/10/18 21:00 06/11/17 22:56 (D50w (Vial) Inj) 50 ml UNSCH PRN IV PUSH 06/11/17 02:15 (Glucagon Inj) 1 mg UNSCH PRN OTHER 06/11/17 02:15 (NovoLOG SUPPLEMENTAL SCALE) 1 ACHS SLIDING SCALE SQ 06/11/17 08:00 (Heparin Inj) 5,000 units Q8HR SQ 06/11/17 06:00 06/12/17 06:49 (Catapres) 0.1 mg Q6H PRN PO 06/12/17 11:15 (Norvasc) 10 mg DAILY PO 06/13/17 09:00 A/P Problem List: (1) Hypertension ICD Code: I10 - Hypertension Status: Acute (2) Dehydration ICD Code: E86.0 - Dehydration Status: Acute (3) Impaired gait ICD Code: R26.9 - Impaired gait Status: Acute Assessment and Plan 71-year-old male with history of hypertension, CVA, prostate cancer presented to the ED with concerns of not being able to care for himself and his current [facility]. Physical deconditioning status post falls -PT eval and treat -Case management consult for SNF placement Mild rhabdomyolysis CPK 363 -IVF -CPK trending down - Continue to follow CPK 06/12 CPK now within normal range. Discontinue IV fluids. Hyperglycemia -Patient denies history of DM -Accu-Cheks with sliding scale -A1C ordered and pending. - Blood sugars more stable. Hypertension, chronic -Continue lisinopril, and monitor vitals - BP elevated - Add clonidine as needed. Continue to monitor vital signs. 06/12 blood pressure reveal elevated this a.m. Continue lisinopril 40 minutes p.o. daily, Coreg 25 mg p.o. twice daily, Dyazide 37.5- 25 mg. Add amlodipine 10 mg p.o. daily and clonidine 0.1 mg p.o. every 6 hours as needed. Hyperlipidemia, chronic -Continue simvastatin DVT prophylaxis: SCDs, heparin Discharge Planning Possible discharge later today blood pressure stabilized. Patient will need home health care. Jagjit Gonzalez MD Jun 12, 2017 12:39
[2017-06-12] MEDS ORDERED: AMLO10 PO (12:54)
--- NOTE | 2017-06-12 12:57 | HHI.DCPOC ---
Discharge Care Plan Diagnosis: (1) Diabetes mellitus, new onset (2) H/O: CVA (cerebrovascular accident) (3) Impaired gait (4) Hypertension (5) Dehydration (6) Presence of intrathecal baclofen pump (7) Spastic hemiplegia, dominant side Goals to Promote Your Health * To prevent worsening of your condition and complications * To maintain your health at the optimal level Directions to Meet Your Goals Take your medications as prescribed Follow your dietary instruction Follow activity as directed Keep your appointments as scheduled Take your immunizations and boosters as scheduled If your symptoms worsen call your PCP, if no PCP go to Urgent Care Center or Emergency Room Smoking is Dangerous to Your Health. Avoid second hand smoke Call the 24-hour hour crisis hotline for domestic abuse at Jagjit Gonzalez MD Jun 12, 2017 12:57
--- NOTE | 2017-06-12 13:08 | HHI.FF ---
Face to Face Verification Diagnosis: (1) Rhabdomyolysis (2) Presence of intrathecal baclofen pump (3) H/O: CVA (cerebrovascular accident) (4) Spastic hemiplegia, dominant side (5) Diabetes mellitus, new onset (6) Impaired gait (7) Hypertension (8) Unable to walk Physical Therapy Order: Strength and gait training Home Health Nursing Order: Diabetic education Nursing assessment with vital signs I have seen patient Rj Corrales on 06/12/17. My clinical findings support the need for the requested home health care services because: Limited ability to care for self Need for psychosocial assistance High risk of falls I certify that my clinical findings support that this patient is homebound because: Unsafe to leave home unassisted Unable to use public transportation Jagjit Gonzalez MD Jun 12, 2017 13:08
--- NOTE | 2017-06-12 13:11 | PD.PSY.CON ---
Provisional Diagnosis Admission Date Jun 10, 2017 at 23:36 [place]. Adjustment disorder with depressed mood History of Present Illness Service Psychiatry Consult Requested By ER Reason for Consult Suicidal Primary Care Physician Velasquez Yin MD HPI The patient is a 71-year-old man, domiciled in [facility], he is , retired, with no previous psychiatric history, no previous psychiatric hospitalizations, he denies use of drugs and alcohol, no previous suicide attempts, with medical history of hypertension, hyperlipidemia, CVA, prostate cancer presented to the ED with concerns of not being able to care for himself and his current NICK. Physical deconditioning status post falls. Consulted to psychiatry due to suicidal ideation. On psychiatric evaluation the patient is irritable, visible upset, stating that the reason he expressed suicidality is because the nurses are not doing her job. The patient says that he does not want to , that he was never hurt himself, but he has been calling the nurse for over 30 minutes and the on come. In front of me he called the nurse, he was about to say that the nurse was lasting too much, when the nurse showed up in the nurse confronted the patient about the fact that every time he calls she is here in less than 3 minutes and he agreed with that. Patient reports being frustrated due to current hospitalization, he says that he does not have a lot of information about what is going on. He denies hopelessness, he denies helplessness, he denies worthlessness, he denies anhedonia, he denies suicidal ideation, he denies homicidal ideation, he denies visual and auditory hallucinations. The patient is oriented 3. No gross cognitive impairment. He denies the use of alcohol and drugs Review of Systems Constitutional: DENIES: Diaphoretic episodes, Fatigue, Fever, Weight gain, Weight loss, Chills, Dizziness, Change in appetite, Night Sweats Endocrine: DENIES: Heat/cold intolerance, Polydipsia, Polyuria, Polyphagia Eyes: DENIES: Blurred vision, Diplopia, Eye inflammation, Eye pain, Vision loss , Photosensitivity, Double Vision Ears, nose, mouth, throat: DENIES: Tinnitus, Hearing loss, Vertigo, Nasal discharge, Oral lesions, Throat pain, Hoarseness, Ear Pain, Running Nose, Epistaxis, Sinus Pain, Toothache, Odynophagia Respiratory: DENIES: Apneas, Cough, Snoring, Wheezing, Hemoptysis, Sputum production, Shortness of breath Gastrointestinal: DENIES: Abdominal pain, Black stools, Bloody stools, Constipation, Diarrhea, Nausea, Vomiting, Difficulty Swallowing, Anorexia Genitourinary: DENIES: Sexual dysfunction, Urinary frequency, Urinary incontinence, Urgency, Hematuria, Dysuria, Nocturia, Penile Discharge, Testicular Pain, Testicular Swelling Musculoskeletal: DENIES: Joint pain, Muscle aches, Stiffness, Joint Swelling, Back pain, Neck pain Integumentary: DENIES: Abnormal pigmentation, Nail changes, Pruritus, Rash Hematologic/lymphatic: DENIES: Bruising, Lymphadenopathy Immunologic/allergic: DENIES: Eczema, Urticaria Past Family Social History Coded Allergies: No Known Allergies (Unverified Adverse Reaction, Unknown, 06/10/17) Reported Medications Tramadol (Tramadol) 50 Mg Tab, 50 MG PO Q6H Y for PAIN, TAB 0 Refills 06/07/17 Simvastatin (Simvastatin) 20 Mg Tab, 20 MG PO HS for Cholesterol Management, # 30 TAB 0 Refills 06/07/17 Citalopram (Celexa) 20 Mg Tab, 20 MG PO BID for Control Depression, #30 TAB 0 Refills 06/07/17 Multiple Vitamin (Multi-Vitamin Daily) 1 Tab Tab, 1 TAB PO DAILY for Nutritional Supplement, TAB 0 Refills 03/20/17 Triamterene-Hydrochlorothiazide (Triamterene-Hydrochlorothiazide) 37.5-25 Mg Cap , 1 CAP PO DAILY, #30 CAP 0 Refills 03/20/17 [Baclofen] No Conflict Check, 256.1 MCG ITR CONTINUOUS 02/07/16 Lisinopril (Prinivil) 20 Mg Tab, 40 MG PO DAILY for Blood Pressure Management, # 60 TAB 0 Refills 01/03/16 [place]-3 Fatty Acids (Fish Oil) 1,000 Mg Cap, 1000 HS 01/03/16 Fexofenadine (Fexofenadine) 60 Mg Tab, 180 PO DAILY for Allergy Management, #60 TAB 0 Refills 01/03/16 Carvedilol (Coreg) 25 Mg Tab, 25 MG PO BID, #60 TAB 0 Refills 01/03/16 Sennosides-Docusate Sodium (Senna S) 8.6-50 Mg Tab, 1 TAB BID 01/03/16 Discontinued Reported Medications Simvastatin (Zocor) 40 Mg Tab, 0.5 MG PO HS for Cholesterol Management, #30 TAB 0 Refills 01/03/16 Citalopram (Celexa) 20 Mg Tab, 10 MG PO DAILY for Control Depression, #30 TAB 0 Refills 01/03/16 Current Medications Medications (Trade) Dose Ordered Sig/Luz Route Start Time Stop Time Status Last Admin Sodium Chloride 1,000 ml @ 100 mls/hr Q10H IV 06/10/17 23:52 06/12/17 07:23 (NS Flush) 2 ml UNSCH PRN IV FLUSH 06/11/17 00:00 (NS Flush) 2 ml BID IV FLUSH 06/11/17 09:00 (Tylenol) 650 mg Q4H PRN PO 06/11/17 00:00 (Zofran Inj) 4 mg Q6H PRN IVP 06/11/17 00:00 (Narcan Inj) 0.4 mg UNSCH PRN IV PUSH 06/11/17 00:00 (Jhoana-Colace) 1 tab BID PO 06/11/17 09:00 06/12/17 09:34 (Milk Of Magnesia Liq) 30 ml Q12H PRN PO 06/11/17 00:00 (Senokot) 17.2 mg Q12H PRN PO 06/11/17 00:00 (Dulcolax Supp) 10 mg DAILY PRN RECTAL 06/11/17 00:00 (Lactulose Liq) 30 ml DAILY PRN PO 06/11/17 00:00 (Coreg) 25 mg BID PO 06/11/17 09:00 06/12/17 09:33 (CeleXA) 20 mg BID PO 06/11/17 09:00 06/12/17 09:33 (Prinivil) 40 mg DAILY PO 06/11/17 09:00 06/12/17 09:34 (Dyazide 37.5-25 Mg) 1 cap DAILY PO 06/11/17 09:00 06/12/17 09:34 (Theragran) 1 tab DAILY PO 06/11/17 09:00 06/12/17 09:34 (Pravachol) 40 mg HS PO 06/11/17 21:00 06/11/17 22:56 (D50w (Vial) Inj) 50 ml UNSCH PRN IV PUSH 06/11/17 02:15 (Glucagon Inj) 1 mg UNSCH PRN OTHER 06/11/17 02:15 (NovoLOG SUPPLEMENTAL SCALE) 1 ACHS SLIDING SCALE SQ 06/11/17 08:00 (Heparin Inj) 5,000 units Q8HR SQ 06/11/17 06:00 06/12/17 06:49 (Catapres) 0.1 mg Q6H PRN PO 06/12/17 11:15 (Norvasc) 10 mg DAILY PO 06/13/17 09:00 (Glucophage) 500 mg BIDPC PO 06/12/17 13:00 UNV Family Psych History No family psychiatric Social History Patient was born and raised in [place], he lives in [facility], he is , retired Patient's Strengths (min. 2) Family support Physical Exam Vital Signs Vital Signs Date Time Temp Pulse Resp B/P (MAP) Pulse Ox O2 Delivery O2 Flow Rate FiO2 06/12/17 11:12 98.2 62 18 146/67 (93) 97 06/11/17 03:33 Room Air Lab Results Test 06/12/17 11:13 Total Creatine Kinase 281 U/L Mental Status Examination Appearance: Appropriate Consciousness: Alert Orientation: x4 Motor Activity: Normal gait Speech: Unremarkable Language: Adequate Fund of Knowledge: Adequate Attention and Concentration: Adequate Memory: Unremarkable Mood: Appropriate Affect: Appropriate Thought Process & Associations: Intact Thought Content: Appropriate Hallucination Type: None Delusion Type: None Suicidal Ideation: No Suicidal Plan: No Suicidal Intention: No Homicidal Ideation: No Homicidal Plan: No Homicidal Intention: No Insight: Adequate Judgment: Adequate Assessment & Plan Problem List: (1) Adjustment disorder with depressed mood ICD Codes: F43.21 - Adjustment disorder with depressed mood Assessment & Plan: Psychiatric evaluation today the patient denies symptomatology of depression, he denies anxiety, he denies satinder and psychosis. The patient denies suicidal or homicidal ideation, he denies visual and auditory hallucinations. The patient does report frustration due to what he considers lack of response from the nurses and also for communication with primary medical team. In this context of frustration the patient reported suicidal ideation most probably with intention to manipulate and seek attention. As per nurses, the patient has been demanding, very entitled and irritable. I have offered psychoeducation, supportive psychotherapy to the patient. He was receptive to this intervention. I am not recommend psychotropics. He does not meet criteria for involuntary psychiatric admission. Assessment & Plan Estimated LOS: days Mehdi Rahman MD Jun 12, 2017 13:11
[2017-06-12] MEDS: metFORMIN HCL 500 MG TAB PO SCH ×2 (13:56→18:41)
[2017-06-12] MEDS: PRAVASTATIN SOD 40 MG TAB PO SCH (21:00)
[2017-06-13 00:12] VITALS: BP 150/73; PULSE 61; RESP 18; TEMP 98.4; O2SAT 98
[2017-06-13] MEDS: SODIUM CHLOR 0.9% 1000 ML INJ 1,000 ML IV SCH (02:09)
[2017-06-13 05:28] VITALS: BP 140/80; PULSE 89; RESP 18; TEMP 98.2; O2SAT 96
[2017-06-13] MEDS: HEPARIN SODIUM - SQ 10,000 UNITS/ML VIAL SQ SCH ×3 (05:44→21:17)
[2017-06-13] MEDS: INSULIN ASPART SUPPLEMENTAL SCALE SQ SCH ×4 (08:00→21:00)
[2017-06-13 08:51] VITALS: BP 184/79; PULSE 62; RESP 20; TEMP 98.6; O2SAT 97
[2017-06-13] MEDS: SODIUM CHLORIDE 0.9% FLUSH 10 ML FLUSH IV FLUSH SCH ×2 (09:23→21:17)
[2017-06-13] MEDS: DOCUSATE SODIUM 50 MG/SENNA 8.6 MG TAB PO SCH ×2 (09:24→21:17)
[2017-06-13] MEDS: TRIAMTERENE/HCTZ 37.5 MG/25 MG CAP PO SCH (09:24)
[2017-06-13] MEDS: metFORMIN HCL 500 MG TAB PO SCH ×2 (09:24→20:26)
[2017-06-13] MEDS: CITALOPRAM HYDROBROMIDE 20 MG TAB PO SCH ×2 (09:25→21:17)
[2017-06-13] MEDS: LISINOPRIL 20 MG TAB PO SCH (09:27)
[2017-06-13] MEDS: MULTIVITAMIN TAB PO SCH (09:27)
[2017-06-13] MEDS: CARVEDILOL 12.5 MG TAB PO SCH ×2 (09:27→21:18)
--- NOTE | 2017-06-13 09:44 | PD.PN.STU ---
Subjective Remarks Denies chest pain or shortness of breath. Does not complain of spasm or pain in right upper extremity today. Feeling more confident after doing some PT and ready to go home. Denies SI/HI. Objective Vitals Vital Signs Date Time Temp Pulse Resp B/P (MAP) Pulse Ox O2 Delivery O2 Flow Rate FiO2 06/13/17 08:51 98.6 62 20 184/79 (114) 97 06/13/17 05:28 98.2 89 18 140/80 (100) 96 06/13/17 00:12 98.4 61 18 150/73 (98) 98 06/12/17 20:19 98.3 89 18 161/73 (102) 96 06/12/17 16:56 98.3 64 18 135/57 (83) 98 06/12/17 13:39 159/61 (93) 06/12/17 13:36 61 173/77 (109) 97 06/12/17 11:12 98.2 62 18 146/67 (93) 97 I/O 06/12/17 06/12/17 06/12/17 06/13/17 06/13/17 06/13/17 07:00 15:00 23:00 07:00 15:00 23:00 Output Total 1300 ml Balance -1300 ml Output Urine Total 1300 ml # Voids 6 Result Diagram: 06/11/17 0851 06/11/17 0851 Objective Remarks general: No acute distress. Cardio: Regular rate and rhythm. No murmurs, gallops or rubs. Resp: Clear throughout bilaterally. No wheezes, rhonchi, rales. Neuro: AOx3, right extremity minimal movement remains stable. Bilateral lower extremity weakness, right greater than left remains unchanged. A/P Assessment and Plan 71-year-old male with history of hypertension, CVA, prostate cancer presented to the ED with concerns of not being able to care for himself and his current LONGTERM. pending discharge with SNF placement. 1. Weakness/Physical deconditioning status post falls Pt evaluation completed. CT shows no new lesions or recent infarcts.Case management consulted for SNF placement 06/13 pending case management for SNF placement 2. Mild rhabdomyolysis CPK 363 on admission, 320 this AM. Trending down. Continue with IVF and monitor 06/13 CPK normalized 06/12. 3. Hyperglycemia, patient denies any history, glucose 241 06/11 142 on sliding scale. 06/13 started on metformin 500 mg this AM. counselled patient on possible side effects to include diarrhea. 4. Hypertension, chronic 06/11 home meds restarted, continue to monitor. 06/13 Blood pressure continues to fluctuate with highest 184 systolic this morning. Clonidine 0.1 mg ordered for systolic >160. will recheck vitals after administration. 5. Hyperlipidemia, chronic 06/11 home meds restarted, continue to monitor DVT prophylaxis: SCDs, heparin Discussed Condition With Patient and ED physician Isabel Baum M3 Jun 13, 2017 09:44
[2017-06-13 12:44] VITALS: BP 153/71; PULSE 74; RESP 18; TEMP 98.2; O2SAT 95
[2017-06-13] MEDS: DOXAZOSIN MESYLATE 2 MG TAB PO SCH (14:12)
[2017-06-13 16:52] VITALS: BP 136/75; PULSE 64; RESP 18; TEMP 97.9; O2SAT 97
--- NOTE | 2017-06-13 16:59 | HHI.DS ---
Discharge Summary Admission Date Jun 10, 2017 at 23:36 Discharge Date: Jun 13, 2017 Admitting Diagnosis dehydration, inability to walk (1) Hypertension ICD Code: I10 - Hypertension Status: Acute (2) Dehydration ICD Code: E86.0 - Dehydration Status: Acute (3) Impaired gait ICD Code: R26.9 - Impaired gait Status: Acute Brief History - From Admission 71-year-old male with history of hypertension, CVA, prostate cancer presented to the ED with concerns of not being able to care for himself and his current NICK. Patient states over the last few weeks he has been falling more often and has been feeling very weak which causes him to have inability to walk with his cane. He does have a history of a stroke in the past with residual right-sided weakness but he states this is unchanged. Per the ER report staff at the [facility] has been concerned for the patient because he is unable to care for himself in the current setting with everyday ADLs. He denies any current chest pain, shortness of breath, fever or chills. CBC/BMP: 06/11/17 0851 06/11/17 0851 Significant Findings Laboratory Tests Test 06/10/17 19:34 06/10/17 20:44 06/11/17 08:51 06/12/17 11:13 Red Blood Count 3.33 MIL/MM3 (4.50-5.90) 3.49 MIL/MM3 (4.50-5.90) Hemoglobin 10.4 GM/DL (13.0-17.0) 10.9 GM/DL (13.0-17.0) Hematocrit 30.2 % (39.0-51.0) 31.4 % (39.0-51.0) Monocytes (%) (Auto) 14.0 % (0.0-8.0) 10.9 % (0.0-8.0) Lymphocytes # (Auto) 0.9 TH/MM3 (1.0-4.8) 0.5 TH/MM3 (1.0-4.8) Blood Urea Nitrogen 27 MG/DL (7-18) Random Glucose 241 MG/DL (74-106) 142 MG/DL (74-106) Albumin 3.3 GM/DL (3.4-5.0) Calcium Level 8.0 MG/DL (8.5-10.1) 8.1 MG/DL (8.5-10.1) Sodium Level 134 MEQ/L (136-145) Estimat Glomerular Filtration Rate 70 ML/MIN (>89) Total Creatine Kinase 363 U/L (39-308) 320 U/L (39-308) Troponin I LESS THAN 0.02 NG/ML Neutrophils (%) (Auto) 76.1 % (16.0-70.0) Hemoglobin A1c 6.6 % (4.3-6.0) Creatine Kinase MB 4.0 NG/ML (0.5-3.6) Imaging Last Impressions Upper Extremity Ultrasound 06/10/17 0000 Signed Impressions: Service Date/Time: Saturday, June 10, 2017 20:03 - CONCLUSION: Normal examination. Zhang Cueva MD Head CT 06/10/17 0000 Signed Impressions: Service Date/Time: Saturday, June 10, 2017 19:49 - CONCLUSION: 1. No acute findings. Remote infarct left external capsule with encephalomalacia. Zhang Cueva MD PE at Discharge GENERAL: This is a well-nourished, well-developed patient, in no apparent distress. SKIN: multiple ecchymosis bilateral arms HEAD: Atraumatic. Normocephalic. EYES: Pupils equal round and reactive. ENT: Nose without bleeding, purulent drainage or septal hematoma. Airway patent. NECK: Trachea midline. No JVD or lymphadenopathy CARDIOVASCULAR: Regular rate and rhythm without murmurs, gallops, or rubs. RESPIRATORY: Clear to auscultation. Breath sounds equal bilaterally. No wheezes , rales, or rhonchi. GASTROINTESTINAL: Abdomen soft, non-tender, nondistended. No guarding. MUSCULOSKELETAL: Extremities without clubbing, cyanosis, or edema. No joint tenderness, effusion, or edema noted. No calf tenderness. NEUROLOGICAL: Awake and alert. Right upper extremity with minimal movement due to CVA. Bilateral lower extremities weak right greater than left .Normal speech Pt Condition on Discharge: Stable Discharge Disposition: [facility] Discharge Time: > 30 minutes Discharge Instructions DIET: Follow Instructions for: Diabetic Diet Activities you can perform: See Additionl Instruction Other Activity Instructions: as per PT instructions OOB with assistance Follow up Referrals: PCP Follow-up - 2 Weeks New Medications: Amlodipine (Norvasc) 10 Mg Tab 10 MG PO DAILY for Blood Pressure Management, #31 TAB Continued Medications: Carvedilol (Coreg) 25 Mg Tab 25 MG PO BID, #60 TAB 0 Refills Citalopram (Celexa) 20 Mg Tab 20 MG PO BID for Control Depression, #30 TAB 0 Refills Fexofenadine (Fexofenadine) 60 Mg Tab 180 PO DAILY for Allergy Management, #60 TAB 0 Refills Lisinopril (Prinivil) 20 Mg Tab 40 MG PO DAILY for Blood Pressure Management, #60 TAB 0 Refills Multiple Vitamin (Multi-Vitamin Daily) 1 Tab Tab 1 TAB PO DAILY for Nutritional Supplement, TAB 0 Refills [place]-3 Fatty Acids (Fish Oil) 1,000 Mg Cap 1000 HS Sennosides-Docusate Sodium (Senna S) 8.6-50 Mg Tab 1 TAB BID Simvastatin (Simvastatin) 20 Mg Tab 20 MG PO HS for Cholesterol Management, #30 TAB 0 Refills Tramadol (Tramadol) 50 Mg Tab 50 MG PO Q6H PRN for PAIN, TAB 0 Refills Triamterene-Hydrochlorothiazide (Triamterene-Hydrochlorothiazide) 37.5-25 Mg Cap 1 CAP PO DAILY, #30 CAP 0 Refills [Baclofen] () 256.1 MCG ITR CONTINUOUS Jagjit Gonzalez MD Jun 13, 2017 16:59
[2017-06-13 19:28] VITALS: BP 138/65; PULSE 66; RESP 20; TEMP 98.7; O2SAT 95
[2017-06-13] MEDS: PRAVASTATIN SOD 40 MG TAB PO SCH (21:18)
[2017-06-14] VITALS: BP 167/72; PULSE 62; RESP 19; TEMP 98; O2SAT 97
[2017-06-14 04:00] VITALS: BP 141/78; PULSE 62; RESP 17; TEMP 98; O2SAT 97
[2017-06-14] MEDS: HEPARIN SODIUM - SQ 10,000 UNITS/ML VIAL SQ SCH ×2 (05:15→18:16)
[2017-06-14] MEDS: INSULIN ASPART SUPPLEMENTAL SCALE SQ SCH ×3 (08:00→17:00)
[2017-06-14 08:40] VITALS: BP 159/74; PULSE 63; RESP 18; TEMP 98.2; O2SAT 98
[2017-06-14] MEDS: DOXAZOSIN MESYLATE 2 MG TAB PO SCH (12:04)
[2017-06-14] MEDS: CITALOPRAM HYDROBROMIDE 20 MG TAB PO SCH (12:04)
[2017-06-14] MEDS: CARVEDILOL 12.5 MG TAB PO SCH (12:05)
[2017-06-14] MEDS: metFORMIN HCL 500 MG TAB PO SCH ×2 (12:05→18:16)
[2017-06-14] MEDS: DOCUSATE SODIUM 50 MG/SENNA 8.6 MG TAB PO SCH (12:06)
[2017-06-14] MEDS: LISINOPRIL 20 MG TAB PO SCH (12:06)
[2017-06-14] MEDS: MULTIVITAMIN TAB PO SCH (12:06)
[2017-06-14] MEDS: SODIUM CHLORIDE 0.9% FLUSH 10 ML FLUSH IV FLUSH SCH (12:07)
[2017-06-14] MEDS: TRIAMTERENE/HCTZ 37.5 MG/25 MG CAP PO SCH (12:07)
--- NOTE | 2017-06-14 13:17 | HHI.PR ---
Subjective Remarks No major overnight events. Denies chest pain or shortness of breath. Objective Vitals Vital Signs Date Time Temp Pulse Resp B/P (MAP) Pulse Ox O2 Delivery O2 Flow Rate FiO2 06/14/17 08:40 98.2 63 18 159/74 (102) 98 06/14/17 04:00 98.0 62 17 141/78 (99) 97 06/14/17 00:00 98.0 62 19 167/72 (103) 97 06/13/17 19:28 98.7 66 20 138/65 (89) 95 06/13/17 16:52 97.9 64 18 136/75 (95) 97 I/O 06/13/17 06/13/17 06/13/17 06/14/17 06/14/17 06/14/17 07:00 15:00 23:00 07:00 15:00 23:00 Intake Total 50 ml Output Total 1300 ml 400 ml Balance -1300 ml -350 ml Intake Oral 50 ml Output Urine Total 1300 ml 400 ml # Voids 6 Result Diagram: 06/11/17 0851 06/11/17 0851 Imaging Last Impressions Upper Extremity Ultrasound 06/10/17 0000 Signed Impressions: Service Date/Time: Saturday, June 10, 2017 20:03 - CONCLUSION: Normal examination. Zhang Cueva MD Head CT 06/10/17 0000 Signed Impressions: Service Date/Time: Saturday, June 10, 2017 19:49 - CONCLUSION: 1. No acute findings. Remote infarct left external capsule with encephalomalacia. Zhang Cueva MD Objective Remarks GENERAL: This is a well-nourished, well-developed patient, in no apparent distress. SKIN: multiple ecchymosis bilateral arms HEAD: Atraumatic. Normocephalic. EYES: Pupils equal round and reactive. ENT: Nose without bleeding, purulent drainage or septal hematoma. Airway patent. NECK: Trachea midline. No JVD or lymphadenopathy CARDIOVASCULAR: Regular rate and rhythm without murmurs, gallops, or rubs. RESPIRATORY: Clear to auscultation. Breath sounds equal bilaterally. No wheezes , rales, or rhonchi. GASTROINTESTINAL: Abdomen soft, non-tender, nondistended. No guarding. MUSCULOSKELETAL: Extremities without clubbing, cyanosis, or edema. No joint tenderness, effusion, or edema noted. No calf tenderness. NEUROLOGICAL: Awake and alert. Right upper extremity with minimal movement due to CVA. Bilateral lower extremities weak right greater than left .Normal speech Medications and IVs Current Medications Medications (Trade) Dose Ordered Sig/Luz Route Start Time Stop Time Status Last Admin (NS Flush) 2 ml UNSCH PRN IV FLUSH 06/11/17 00:00 (NS Flush) 2 ml BID IV FLUSH 06/11/17 09:00 06/14/17 12:07 (Tylenol) 650 mg Q4H PRN PO 06/11/17 00:00 (Zofran Inj) 4 mg Q6H PRN IVP 06/11/17 00:00 (Narcan Inj) 0.4 mg UNSCH PRN IV PUSH 06/11/17 00:00 (Jhoana-Colace) 1 tab BID PO 06/11/17 09:00 06/14/17 12:06 (Milk Of Magnesia Liq) 30 ml Q12H PRN PO 06/11/17 00:00 (Senokot) 17.2 mg Q12H PRN PO 06/11/17 00:00 06/14/17 12:05 (Dulcolax Supp) 10 mg DAILY PRN RECTAL 06/11/17 00:00 (Lactulose Liq) 30 ml DAILY PRN PO 06/11/17 00:00 (Coreg) 25 mg BID PO 06/11/17 09:00 06/14/17 12:05 (CeleXA) 20 mg BID PO 06/11/17 09:00 06/14/17 12:04 (Prinivil) 40 mg DAILY PO 06/11/17 09:00 06/14/17 12:06 (Dyazide 37.5-25 Mg) 1 cap DAILY PO 06/11/17 09:00 06/14/17 12:07 (Theragran) 1 tab DAILY PO 06/11/17 09:00 06/14/17 12:06 (Pravachol) 40 mg HS PO 06/11/17 21:00 06/13/17 21:18 (D50w (Vial) Inj) 50 ml UNSCH PRN IV PUSH 06/11/17 02:15 (Glucagon Inj) 1 mg UNSCH PRN OTHER 06/11/17 02:15 (NovoLOG SUPPLEMENTAL SCALE) 1 ACHS SLIDING SCALE SQ 06/11/17 08:00 06/12/17 21:01 (Heparin Inj) 5,000 units Q8HR SQ 06/11/17 06:00 06/14/17 05:15 (Catapres) 0.1 mg Q6H PRN PO 06/12/17 11:15 06/14/17 00:41 (Norvasc) 10 mg DAILY PO 06/13/17 09:00 06/14/17 12:06 (Glucophage) 500 mg BIDPC PO 06/12/17 13:00 06/14/17 12:05 (Cardura) 2 mg DAILY PO 06/13/17 10:15 06/14/17 12:04 Urinary Catheter: No Vascular Central Line Catheter: No A/P Problem List: (1) Hypertension ICD Code: I10 - Hypertension Status: Acute (2) Dehydration ICD Code: E86.0 - Dehydration Status: Acute (3) Impaired gait ICD Code: R26.9 - Impaired gait Status: Acute Assessment and Plan 71-year-old male with history of hypertension, CVA, prostate cancer presented to the ED with concerns of not being able to care for himself and his current FDC. Physical deconditioning status post falls -PT eval and treat -Case management consult for SNF placement Mild rhabdomyolysis CPK 363 -IVF -CPK trending down - Continue to follow CPK 06/12 CPK now within normal range. Discontinue IV fluids. Hyperglycemia -Patient denies history of DM -Accu-Cheks with sliding scale -A1C ordered and pending. -Blood sugar stable. Hypertension, chronic -Continue lisinopril, and monitor vitals - BP elevated - Add clonidine as needed. Continue to monitor vital signs. 06/12 blood pressure reveal elevated this a.m. Continue lisinopril 40 minutes p.o. daily, Coreg 25 mg p.o. twice daily, Dyazide 37.5- 25 mg. Add amlodipine 10 mg p.o. daily and clonidine 0.1 mg p.o. every 6 hours as needed. 06/14 BP w better control. Continue management as above and continue to monitor vital signs. Hyperlipidemia, chronic -Continue simvastatin DVT prophylaxis: SCDs, heparin Discharge Planning Discharge pending placement. Jagjit Gonzalez MD Jun 14, 2017 13:17
[2017-06-14 16:30] VITALS: BP 136/60; PULSE 63; RESP 18; TEMP 98.2; O2SAT 96
== END 2017-06-14 19:00 | disposition home or self-care (01) ==
LOC: NEPE 18:46 → UNDOADMIN 22:22 → NEDA 22:22 → INTOOBSV 23:36 → NEDA 23:36 → NEDH 06-11 04:58 → NEPGCP 06-11 15:04
PROVIDERS: ADMIT Internal Medicine; ATTEND Internal Medicine
DX: I10 Essential (primary) hypertension (principal); E86.0 Dehydration; Z85.46 Personal history of malignant neoplasm of prostate; Z91.81 History of falling; M62.82 Rhabdomyolysis; E11.65 Type 2 diabetes mellitus with hyperglycemia; E78.00 Pure hypercholesterolemia, unspecified; Z92.3 Personal history of irradiation; H91.90 Unspecified hearing loss, unspecified ear; I45.10 Unspecified right bundle-branch block; I69.351 Hemiplegia and hemiparesis following cerebral infarction affecting right dominant side; M79.602 Pain in left arm; G47.30 Sleep apnea, unspecified; R26.2 Difficulty in walking, not elsewhere classified; G93.89 Other specified disorders of brain; F43.21 Adjustment disorder with depressed mood; G89.29 Other chronic pain; R45.851 Suicidal ideations
CPT/HCPCS: 70450; 80048; 80053; 81001; 82550; 82552; 82948; 83036; 84484; 85025; 93005; 93971; 96360; 96361; 96372; 97162; 99285; G0378; G8987; G8988; J1644; J1815; J7030